=== PATIENT | female | born 1960 ===

== ENCOUNTER 2017-12-23 14:38 | Emergency (ER) | payer OTHER ==
[~2017-12-23] VITALS: Ht 175.3 cm; Wt 85.7 kg
[2017-12-23] MEDS ORDERED: SYNTHROID75 MCG (14:59)
== END 2017-12-23 21:55 | disposition home or self-care (01) ==
LOC: ER 14:38
DX: M54.31 Sciatica, right side (principal)

== ENCOUNTER 2020-12-18 09:41 | Emergency (ER) | payer OTHER ==
[~2020-12-18] VITALS: Ht 175.3 cm; Wt 92.1 kg
[~2020-12-18 09:41] MED LIST: SYNTHROID75 MCG
[2020-12-18] MEDS ORDERED: METFORMIN HCL500 M3 (09:53)
[2020-12-18] MEDS ORDERED: CALCIUM500 M1 (09:53)
== END 2020-12-18 10:54 | disposition home or self-care (01) ==
LOC: ER 09:41
DX: M94.0 Chondrocostal junction syndrome [Tietze] (principal)

== ENCOUNTER 2020-12-20 13:14 | Emergency (ER) | payer OTHER ==
[~2020-12-20] VITALS: Ht 175.3 cm; Wt 93.4 kg
[~2020-12-20 13:14] MED LIST changes: +CALCIUM500 M1; +METFORMIN HCL500 M3
[2020-12-20] MEDS ORDERED: CHLORZOXAZONE500 MG PO (13:41)
== END 2020-12-20 20:39 | disposition home or self-care (01) ==
LOC: ER 13:14
DX: M94.0 Chondrocostal junction syndrome [Tietze] (principal)